=== PATIENT | female | born 1980 | race Native Hawaiian/Other Pacific Islander ===

== ENCOUNTER 2017-01-10 03:33 | Emergency (ER) | payer OTHER ==
[~2017-01-10] VITALS: Ht 170.2 cm; Wt 65.3 kg
[2017-01-10 05:02] LABS: PLATELET COUNT 212 K/uL (152-353)
[2017-01-10 05:09] LABS: POTASSIUM 4.6 mmol/L (3.6-5.2); SODIUM 140 mmol/L (136-145)
[2017-01-10 05:31] VITALS: BP 110/10; TEMP 98.4
== END 2017-01-10 05:30 | disposition home or self-care (01) ==
LOC: ED 03:33
DX: R10.9 Unspecified abdominal pain (principal); N89.8 Other specified noninflammatory disorders of vagina
CPT/HCPCS: 36415; 80053; 81000; 85027; 99283

== ENCOUNTER 2017-01-26 22:08 | Emergency (ER) | payer OTHER | END 2017-01-26 23:10 | disposition home or self-care (01) | LOC: ED 22:08 | DX: R22.0 Localized swelling, mass and lump, head (principal) ==

== ENCOUNTER 2017-08-24 01:04 | Emergency (ER) | payer OTHER ==
[~2017-08-24] VITALS: Ht 180.3 cm; Wt 77.1 kg
[2017-08-24 02:06] VITALS: BP 110/77; TEMP 98.5
== END 2017-08-24 02:12 | disposition home or self-care (01) ==
LOC: ED 01:04
DX: R22.0 Localized swelling, mass and lump, head (principal)
CPT/HCPCS: 96372; 99283; J0690

== ENCOUNTER 2017-09-13 11:03 | Emergency (ER) | payer OTHER ==
[~2017-09-13] VITALS: Ht 180.3 cm; Wt 72.6 kg
[2017-09-13 11:59] LABS: PLATELET COUNT 214 K/uL (152-353)
[2017-09-13 12:13] LABS: POTASSIUM 3.3 mmol/L (3.6-5.2)
[2017-09-13 15:43] VITALS: BP 112/60; TEMP 99
== END 2017-09-13 15:44 | disposition home or self-care (01) ==
LOC: ED 11:03
PROVIDERS: Family Medicine
DX: O21.9 Vomiting of pregnancy, unspecified (principal); R11.0 Nausea; F19.10 Other psychoactive substance abuse, uncomplicated
CPT/HCPCS: 80053; 80307; 81000; 81025; 84702; 85027; 96372; 99283; J2405

== ENCOUNTER 2017-12-08 12:08 | Emergency (ER) | payer OTHER ==
[~2017-12-08] VITALS: Ht 175.3 cm; Wt 77.1 kg
[2017-12-08 13:16] LABS: PLATELET COUNT 227 K/uL (152-353)
[2017-12-08 13:21] LABS: POTASSIUM 3.6 mmol/L (3.6-5.2)
[2017-12-08 16:03] VITALS: BP 158/64; TEMP 98.3
== END 2017-12-08 16:04 | disposition home or self-care (01) ==
LOC: ED 12:08
DX: R51 Headache (principal)
CPT/HCPCS: 36415; 80053; 85027; 96360; 96374; 96375; 96376; 99284; J1100; J1200; J1885; J2060; J2270; J2405; J3490

== ENCOUNTER 2019-02-24 18:01 | Emergency (ER) | payer OTHER ==
[~2019-02-24] VITALS: Ht 175.3 cm; Wt 77.1 kg
[2019-02-24 19:04] VITALS: BP 105/61; TEMP 98
== END 2019-02-24 19:05 | disposition home or self-care (01) ==
LOC: ED 18:01
DX: N30.90 Cystitis, unspecified without hematuria (principal); N76.0 Acute vaginitis
CPT/HCPCS: 81000; 81025; 87077; 87086; 87088; 87186; 99283

== ENCOUNTER 2019-03-05 13:24 | Emergency (ER) | payer OTHER | END 2019-03-05 13:30 | disposition home or self-care (01) | LOC: ED 13:24 | DX: N39.0 Urinary tract infection, site not specified (principal) | CPT/HCPCS: 99281 ==

== ENCOUNTER 2019-06-17 14:29 | Emergency (ER) | payer OTHER ==
[~2019-06-17] VITALS: Ht 177.8 cm; Wt 72.6 kg
[2019-06-17 14:29] VITALS: TEMP 97.5
[2019-06-17 15:27] LABS: PLATELET COUNT 235 K/uL (152-353)
[2019-06-17 15:41] LABS: POTASSIUM 3.8 mmol/L (3.6-5.2)
[2019-06-17 17:30] VITALS: BP 112/73
== END 2019-06-17 17:36 ==
LOC: ED 14:33
PROVIDERS: Family Medicine
DX: Z34.92 Encounter for supervision of normal pregnancy, unspecified, second trimester (principal)
CPT/HCPCS: 80053; 81000; 84702; 85027; 99284

== ENCOUNTER 2022-03-20 15:19 | Emergency (ER) | payer OTHER ==
[~2022-03-20] VITALS: Ht 177.8 cm; Wt 72.6 kg
[~2022-03-20 15:19] MED LIST: ONDA4TAB3 PO
[2022-03-20 15:30] VITALS: TEMP 98
[2022-03-20] MEDS ORDERED: AMOX875T8 PO (17:07)
[2022-03-20 17:20] VITALS: BP 110/68
== END 2022-03-20 17:20 | disposition home or self-care (01) ==
LOC: ED 15:19
DX: J20.9 Acute bronchitis, unspecified (principal); F17.210 Nicotine dependence, cigarettes, uncomplicated; Z20.822 Contact with and (suspected) exposure to COVID-19
CPT/HCPCS: 84484; 87502; 87635; 87651; 93005; 99283; U0003